=== PATIENT | male | born 1950 | race Caucasian/White ===

== ENCOUNTER 2025-03-14 17:27 | Inpatient (IN) | payer BC, SELFPAY ==
[2025-03-14 15:12] VITALS: BP 112/82
--- NOTE | 2025-03-14 15:30 | ED.MUSCINJ ---
HPI-Injury
General
Chief Complaint: Fall
Source: patient
Exam Limitations: none
Time Seen by Provider: 03/14/25 15:17
Nursing documentation reviewed up to this point in time: agreed with
History of Present Illness-Injury
Initial Injury comments:
74 yo male w h/o parathyroidectomy, pacemaker/defibrillator, afib, asa only, no other anticoagulation, kidney stones, NIDDM, difficult intubations, HTN, HLD, bone on bone bilateral knee pain. Bone on bone right hip pain, States he was coming out of
restaurant, walking with his walker, lost balance and fell injuring left hip.
Past History
Past History
ED Past Medical History: Arrthythmia (A-fib), CHF, HTN, Hypercholesterolemia, NIDDM and Other (Arthritis both knees, right hip)
ED Past Surgical History: Cardiac (pacemaker) and Other (Parathyroidectomy)
Social History
Tobacco: Former smoker
Alcohol: None
Personal:
Living: with family
Employment: Retired
Review of Systems
Review of Systems
Allergies reviewed?: Yes
All Other Systems: ROS reviewed and negative except as documented in HPI and ROS
Constitutional: Denies fever
Respiratory: Denies trouble breathing
Cardiac: Denies chest pain
ABD/GI: Denies abdominal pain, nausea, diarrhea, constipated or anorexia
: Denies dysuria, frequency or difficulty voiding
Musculoskeletal: Reports joint pain (Chronic bilateral knee and hip pain. Bone on bone R hip pain, Unable to get replaced due to poor cardiac EF 10-15%, in cardiac rehab to try to improve so he can get R hip replaced) and other (Chronic right hip
and bilateral knee pain, Left hip pain new since the fall. Uses a walker or cane but can walk independently inside the house); Denies neck pain or back pain
Skin: Reports no symptoms
Neurological: Denies dizzy, weakness or numbness
Phy Exam
Physical Exam
Physical Exam:
GENERAL: No acute distress. A&Ox3.
CONSTITUTIONAL: Afebrile.
EYES: clear, conjunctivae normal
ENMT: moist mucus membranes
RESPIRATORY: Regular respirations, nonlabored, lungs clear.
CARDIOVASCULAR: Regular rate and rhythm, no murmurs, no rubs.
GI: Morbidly obese, soft, nontender, normal BS
MUSCULOSKELETAL: Unable to move left leg due to significant left hip pain. Well perfused.
SKIN: Warm, dry, pink
PSYCH: Normal mood and affect. Well kept, interactive and appropriate
NEUROLOGIC: Awake, alert and oriented. No focal neurological deficits
Injury Course
Orders/Labs/Results
Orders:
Orders
03/14/25 Dinner
2000 calorie (17 carb) Diabetic
At Your Request: Full Participation
03/14/25 15:29
HYDROmorphone [Dilaudid] 1 mg IV NOW STA
Ondansetron Injectable [Zofran] 4 mg IV NOW STA
Hip, Left 2-3 Views [CR Hip - LT w/wo Pel 2-3 Vw*] Urgent
Comment:
Reason For Exam: pain after fall
Include a pelvis x-ray?: Yes
03/14/25 15:40
Complete Blood Count/With Diff Urgent
Comprehensive Metabolic Panel Urgent
Glycohemoglobin (HgbA1c) Urgent
03/14/25 16:20
Femur, Left 2 View [CR Femur - Left Min 2 Vw] Urgent
Comment:
Reason For Exam: pain after fall
03/14/25 16:41
ORTHOPEDIC CONSULT Urgent
Consulting Provider: Curtis Villarreal
Was physician already notified: Yes
Reason for consult: fracture left hip/prox femur
03/14/25 16:48
PTT Urgent
Prothrombin Time Urgent
03/14/25 16:51
EKG [Electrocardiogram (*1)] Routine
Reason for Study: PreOp
03/14/25 16:53
CARDIOLOGY CONSULT Urgent
Consulting Provider: Alfred Shepard
Was physician already notified: Yes
Reason for consult: Fracture prox femur.
03/14/25 17:13
Admit/Transfer Patient As Directed
Co-Sign Provider:
Level of Care: Inpatient admission
Assign to:: Telemetry
Physician / Group: [email or web address]
Diagnosis: acute Lt Hip proximal femur FX
Reason for Telemetry: Subacute Heart Failure
Date to Stop Telemetry: 03/16/25
Time to Stop Telemetry: 11:00
Reason for Hospitalization: acute Lt Hip proximal femur FX s/p fall
Expected length of stay greater than two midnights?: Yes
ELOS- Estimated Length of Stay in days: 3
I certify the patient meets the requirements for IP care: Yes
03/14/25 17:15
Code Status As Directed
Resuscitation Status: Full Code
03/14/25 18:19
Dextrose 50%-Water [Dextrose 50% Syringe] 12.5 grams IV [id number] PRN
Gabapentin [Neurontin] 100 mg PO QID
Glucagon [GlucaGen] 1 mg IM PRN PRN
HYDROmorphone [Dilaudid] 0.5 mg IV Q3HPRN PRN
Magnesium Hydroxide [Milk of Magnesia] 30 ml PO DAILYPRN PRN
Oxycodone [Roxicodone] 5 mg PO Q4HPRN PRN
Tamsulosin [Flomax] 0.4 mg PO DAILYPRN PRN
03/14/25 18:19
CARDIOLOGY CONSULT Routine
Consulting Provider: Alfred Shepard
Was physician already notified: Yes
Reason for consult: acute Lt Hip proximal femur FX, complex acrd HX, LVEF 10-15, PPM
ORTHOPEDIC CONSULT Routine
Consulting Provider: Curtis Villarreal
Was physician already notified: Yes
Reason for consult: acute Lt Hip proximal femur FX
Activity As Directed
Activity Level: With Assistance
Bedside Glucose Monitoring As Directed
Frequency: AC&HS
Additional Instructions:: Change to q6h if pt on TPN, tube feeding or not eating
Bladder Scan As Directed
Follow Bladder Retention/Intermittent Cath Algorithm?: Yes
PRN if no void in __ hours: 6
Comment: if not voiding 6 hrs upon arrival to floor, bladder scan & follow algorithm
Intake/ Output As Directed
Frequency: Per unit guidelines
Pneumatic Compression Sleeves As Directed
Type: Knee high
Straight Cath As Directed
Frequency: Per Retention Algorithm
Additional Instructions: straight cath as needed per acute urinary retention algorithm for 24 hrs
Additional Instructions: for bladder scan greater than 400 mL
Vital Signs As Directed
Frequency: Per unit guidelines
DX Deep Vein Thrombosis Video Routine
03/14/25 20:00
Acetaminophen [Tylenol] 650 mg PO Q4HWA
Carvedilol [Coreg] 25 mg PO BID
Docusate Sodium [Colace] 100 mg PO BID
Sacubitril 24/Valsartan 26 [Entresto 24 mg/26 mg] 1 tab PO BID
Sennosides [Senokot] 17.2 mg PO BID
03/15/25 06:00
Echo 2D MMode Color/Doppler IN AM
Reason for Study: HX chr HFrEF, preop evalaution
03/15/25 07:30
Insulin Aspart Corrective Low [Novolog Flexpen-Low Resistance] See Protocol SC AC
03/15/25 08:00
Dapagliflozin [Farxiga] 10 mg PO DAILY
Rosuvastatin Calcium [Crestor] 20 mg PO DAILY
Torsemide [Demadex] 60 mg PO DAILY
03/16/25 11:00
DC Protocol for Telemetry ONCE
Abnormal Lab Results
03/14/25
15:40
RBC 3.27 L 10^6/uL
(4.70-6.10)
Hgb 11.2 L g/dL
(13.0-18.0)
Hct 33.8 L %
(39.0-52.0)
MCV 103.4 H fL
(80.0-94.0)
MCH 34.3 H pg
(27.0-31.0)
RDW 14.6 H %
(11.5-14.5)
MPV 10.5 H fL
(7.4-10.4)
Lymphocytes % 20.1 L %
(20.5-51.1)
Monocytes % 10.2 H %
(1.7-9.3)
Carbon Dioxide 31 H mmol/L
(22-30)
BUN 27 H mg/dl
(9-20)
Creatinine 1.4 H mg/dL
(0.7-1.3)
Glucose 125 H mg/dl
(70-99)
Total Protein 6.0 L g/dl
(6.3-8.2)
03/14/25 15:40
03/14/25 15:40
MDM/Problems Addressed
Differential Diagnosis Includes:
L hip fracture vs dislocation, pelvic fracture
MDM/Problems Addressed:
74 yo male w h/o parathyroidectomy, afib on ASA only, pacemaker/defibrillator, kidney stones, NIDDM, difficult intubations, HTN, HLD, bone on bone bilateral knee pain. Bone on bone right hip pain, States he was coming out of restaurant, walking with
his walker, lost balance and fell injuring left hip. Denies hitting head or any other injury.
CBC with no clinically significant abnormality
CMP with mild renal insufficiency, nothing to compare patient has never been here before
X-ray left hip and left femur s initially read by this examiner: comminuted displaced fracture left proximal femur
Patient notified of results and need for admission for surgery.
5:[address] Villarreal Orthopedics notified of admission
Dr. Shepard Cardiology notified of admission.
Hospitalist notified of admission.
*Pulse Oximetry
Oxygen Mode of Delivery: Room air
Patient hypoxic: no
*Critical Care Note
Total Time (30-74mins, 75-104mins- exclusive of procedures): Not Applicable
ED Attending Note
-
Portions of this chart may have been created with voice recognition software.� Occasional wrong word or��sound alike� substitutions may have occurred due to the inherent limitations of voice recognition software.
Discharge Plan
Departure
Patient Disposition: Admit
Date of Disposition: 03/14/25
Time of Disposition: 16:45
Admit to: Med/Surg
Presentation/result/management discussed w/ accepting MD/DO: Hospitalist
Condition: Fair
Discharge Problem:
Fall from slip, trip, or stumble, Closed fracture of proximal end of left femur
Interventions
Interventions:
*Risk Screen - Suicide Last Done: 03/14/25 20:22
*General Assessment Last Done: 03/14/25 15:24
*Neglect/Abuse Screening Last Done: 03/14/25 15:26
*ED- Fall Risk Assessment Last Done: 03/14/25 15:24
*ED COVID-19 Vaccine History Last Done: 03/14/25 15:24
*Nursing Disposition Last Done: 03/14/25 19:41
ED-Musculoskeletal Assessment Last Done: 03/14/25 15:35
ED- Neurological Assessment Last Done: 03/14/25 15:27
ED-Skin Assessment Last Done: 03/14/25 15:36
Discharge Date and Time
Discharge Date/Time: 03/14/25 19:41
[2025-03-14 15:41] VITALS: BMI 32.7
[2025-03-14 15:46] LABS: Hematocrit 33.8 % (39.0-52.0); Hemoglobin 11.2 g/dL (13.0-18.0); Mean Corp Hgb Conc. 33.1 g/dL (33.0-37.0); Mean Corpuscular Volume 103.4 fL (80.0-94.0); Nucleated Red Blood Cells % 0 % (-); Platelet Count 187 10^3/uL (130-400); Red Cell Dist. Width 14.6 % (11.5-14.5)
[2025-03-14] MEDS: DILAUDID 1 MG IV (15:49)
[2025-03-14] MEDS: ZOFRAN 4 MG IV (15:49)
[2025-03-14 16:01] LABS: ALT (SGPT) 19 U/L (0-50); AST (SGOT) 22 U/L (17-59); Albumin 4.0 g/dl (3.5-5.0); Alkaline Phosphatase 43 U/L (38-126); Blood Urea Nitrogen 27 mg/dl (9-20); Calcium 8.4 mg/dl (8.4-10.2); Carbon Dioxide 31 mmol/L (22-30); Chloride 104 mmol/L (98-107); Estimated Creatinine Clearance 62 ml/min; Glucose 125 mg/dl (70-99); Potassium 4.0 mmol/L (3.5-5.1); Sodium 141 mmol/L (135-145); Total Protein 6.0 g/dl (6.3-8.2); eGFR 52.09
--- NOTE | 2025-03-14 16:49 | HPS.HSE ---
Family Physician
-
Family Physician: Lupe Laurent
Chief Complaint
-
Fall and Lt Hip pain
History of Present Illness
HPI
74M Class I Obesity , use walker, No prior visit to HX parathyroidectomy, A Fib on ASA only, pacemaker/defibrillator, kidney stones, NIDDM, difficult intubations, HTN, HLD, bone on bone bilateral knee pain anf Bone on bone right hip pain seen
at ER
- Loss balance and fall coming out of restaurant while walking with walke injuring left hip.
- Denies hitting head or any other injury.
ER XR:
L hip/prox femur Fx
Medical History
Past Medical History
Past Medical History: Reports Arrhythmia (A Fib ), CAD, CHF (margoth HFrEF with LVEF 10-15 % per patient ), HTN, Hypercholesterolemia, NIDDM and Other (use walker, Class I Obesity )
Past Surgical History: Reports Cardiac (PPM/AICD ) and Other (Parathyroidectomy))
Social History
Tobacco: Non-smoker
Alcohol: None
Family History
Family History: Not pertinent
Allergies / Home Medications
Allergies reflects when Allergies were last updated in [facility].
Home Medications with original date entered in [facility]
Allergy/Medication List:
Allergies
Allergy/AdvReac Type Severity Reaction Status Date / Time
Sulfa (Sulfonamide Allergy Hives Verified 03/14/25 15:38
Antibiotics)
Home Medications
carvedilol 25 mg tablet 25 mg PO Q12H 03/14/25
empagliflozin 25 mg tablet (Jardiance) 25 mg PO DAILY 03/14/25
gabapentin 100 mg capsule 100 mg PO QID 03/14/25
rosuvastatin 20 mg tablet (Crestor) 20 mg PO DAILY 03/14/25
sacubitril 24 mg-valsartan 26 mg tablet (Entresto) 1 tab PO BID 03/14/25
torsemide 60 mg tablet 60 mg PO DAILY 03/14/25
Review of Systems
-
Constitutional: Reports No Symptoms
EENT: Reports No Symptoms
Respiratory: Reports No Symptoms
Cardiac: Reports No Symptoms
Abdomen/GI: Reports No Symptoms
: Reports No Symptoms
Musculoskeletal: Reports See HPI
Skin: Reports No Symptoms
Neurological: Reports No Symptoms
Endocrine: Reports No Symptoms
Hematologic/Lymphatic: Reports No Symptoms
Psych: Reports No Symptoms
Physical Exam
Vital Signs
Vital Signs
Pulse Resp BP Pulse Ox
81 21 112/82 93
03/14/25 15:30 03/14/25 15:30 03/14/25 15:12 03/14/25 15:30
Physical Exam
General: Well Developed, Well Nourished and No Apparent Distress
HEENT: NormoCephalic, Moist mucous membranes and Atraumatic
Respiratory: Clear
Cardiac: S1/S2 and Regular Rhythm; No Murmur or Rub
GI: Soft, Non Tender, Non Distended and Normal Bowel Sounds; No Organomegaly
Rectal: Deferred by Provider
Skin: No Rash
Neuro: Nonfocal/grossly intact
Laboratory Results
-
03/14/25 15:40
03/14/25 15:40
Laboratory Results
Total Bilirubin 0.7 mg/dl (0.2-1.3) 03/14/25 15:40
AST 22 U/L (17-59) 03/14/25 15:40
ALT 19 U/L (0-50) 03/14/25 15:40
Alkaline Phosphatase 43 U/L (38-126) 03/14/25 15:40
Data Reviewed
-
Diagnostic Radiology: Report Reviewed by me
Lab Data: Labs Reviewed by me
Impression/Plan
-
Selected Entries
07/06/25
15:12 03/14/25
15:12 03/14/25
15:13
Pulse 81 82
Blood pressure 112/82
Oxygen Mode of Delivery Room air
Actual Weight 118.7 kg
Laboratory Tests
03/14/25 03/14/25
15:40 16:48
WBC 6.2
Hgb 11.2 L
Plt Count 187
INR Pending
Potassium 4.0
Carbon Dioxide 31 H
BUN 27 H
Creatinine 1.4 H
eGFR 52.09
NO PRIOR hospitalist admission:
ASSESSMENT & PLAN
Acute L Hip, Prx femur Fx - not on thinner
s/p mechanical fall. No head strike
Class I Obesity
Us walker at baseline
PMHX of complex cardiac HX - ee below
- Fx set protocol
- PO diet unless OR date is set
- Pre Op card clearance : will order ECHO give HX LVEF 10-15 %
- Ortho consulted
Renal insufficiency - suspect CKD3
- Trend Cr
NIDDM
- add ISS low
Past Cardiac HX - follow with [facility] Dr. Becerra.
HX chr HFrEF , reported LVEF 10-15% - on GDMT with Torsemide, Entresto, Jardiance and carvedilol
HX CAD , HLD - on Crestor
A Fib- on Carvedilol, not on DOAC
HX PPM /AICD
- admission EKG
- ECHO
- CBC card consulted
DVT Px: SCD
Code: Full
IP TLM
[2025-03-14 17:05] LABS: INR 1.11; PT 14.6 Sec (11.4-14.6)
[2025-03-14 17:06] LABS: APTT 29.6 Sec (23.4-35.0)
[2025-03-14] MEDS: DILAUDID 0.5 MG IV (18:35)
[2025-03-14 19:30] VITALS: BP 101/57; BMI 32.6
--- NOTE | 2025-03-14 19:30 | PTCARENOTE ---
Patient arrived from ED via stretcher. Patient aaox3, able to make needs known. IV flushed and patent. Patient conductor pullman from stretcher to bed.
[2025-03-14] MEDS: NEURONTIN 100 MG PO ×2 (20:17→21:34)
[2025-03-14] MEDS: COLACE 100 MG PO (20:17)
[2025-03-14] MEDS: SENOKOT 17.2 MG PO (20:17)
[2025-03-14] MEDS: COREG 25 MG PO (20:18)
[2025-03-14] MEDS: TYLENOL 650 MG PO (20:18)
[2025-03-14 20:29] VITALS: BMI 32.6
[2025-03-14 20:29] LABS: Glucose - Point of Care 107 mg/dl (70-99)
[2025-03-14] MEDS: ENTRESTO 24 MG/26 MG PO (20:30)
[2025-03-14] MEDS: CRESTOR 20 MG PO (21:35)
[2025-03-14 23:00] VITALS: BP 93/49
[2025-03-14] MEDS: TYLENOL PO (23:25)
[2025-03-15] VITALS (8 sets, daily range): BP systolic 96–111; BP diastolic 46–66
[2025-03-15] MEDS: DILAUDID 0.5 MG IV (00:54)
[2025-03-15] MEDS: TYLENOL PO (03:07)
--- NOTE | 2025-03-15 07:51 | CON.ORTHO ---
Consultation
-
Date/Time Consultation Performed: 03/15/2025 740 AM
Consultation - Orthopedics
History
HPI 74-year-old male significant cardiac history with pacemaker presented to the emergency department status post fall complaints of left hip pain and inability to bear weight. He was subsequently diagnosed with a left peritrochanteric femur
fracture. He was admitted to the hospitalist service orthopedics was consulted for further evaluation and treatment. This morning patient reports that he was out the brunch celebrating his anniversary yesterday when he slipped and
fell in a parking lot. He had immediate pain and inability to bear weight left hip. Pain is well localized left groin. Pain is made worse with direct palpation affected area with attempted ambulation. Does report that he was intending to undergo
right total hip arthroplasty for significant right hip DJD for which he requires a walker. Unfortunately cardiac workup prior to his planned total hip arthroplasty revealed significant reduction in ejection fraction he is currently been undergoing
cardiac rehab.
Allergies / Home Medications
Past medical history: A-fib, CAD, CHF, hypertension, hypercholesterolemia, pdo-nueetuq-ufzalatll diabetes
Past surgical history: Cardiac, parathyroidectomy
Family history: Not pertinent
Social history: Retired, lives with , non-smoker
Allergy/AdvReac Type Severity Reaction Status Date / Time
Sulfa (Sulfonamide Allergy Hives Verified 03/14/25 15:38
Antibiotics)
�Medication �Instructions �Recorded
Calcium 600 + D(3) 1 tab PO HS 03/14/25
acetaminophen 500 mg tablet 1,000 mg PO QID 03/14/25
(Tylenol Extra Strength)
carvedilol 25 mg tablet 25 mg PO Q12H 03/14/25
cetirizine 10 mg tablet (Zyrtec) 10 mg PO HSPRN PRN allergies 03/14/25
docusate sodium 100 mg capsule 100 mg PO DAILYPRN PRN constipation 03/14/25
(Colace)
empagliflozin 10 mg tablet 10 mg PO DAILY 03/14/25
(Jardiance)
gabapentin 100 mg capsule 100 mg PO QID 03/14/25
guar gum 1 tbsp PO DAILY 03/14/25
rosuvastatin 20 mg tablet (Crestor) 20 mg PO QPM 03/14/25
rutin 1 tab PO HS 03/14/25
sacubitril 24 mg-valsartan 26 mg 1 tab PO BID 03/14/25
tablet (Entresto)
therapeutic multivitamin 1 tab PO DAILY 03/14/25
torsemide 20 mg tablet 60 mg PO DAILY 03/14/25
Vital Signs / Lab Results
Temp Pulse Resp BP Pulse Ox
98.4 F 79 18 104/66 92
03/15/25 07:40 03/15/25 07:40 03/15/25 07:40 03/15/25 07:40 03/15/25 07:40
03/14/25 15:40
03/14/25 15:40
10 point review systems reviewed and negative unless otherwise stated
General: Pleasant, no acute distress at rest
Musculoskeletal left lower extremity
Skin intact, no erythema or ecchymotic staining noted, moderate swelling
No palpable ipsilateral knee effusion
Positive EHL, FHL, ankle dorsiflexion, plantarflexion
Brisk cap refill distally
Extremity shortened externally rotated
No other areas of bony tenderness palpation or crepitation long bones or joints on tertiary exam
Diagnostic studies
X-rays left hip and femur independently viewed by myself. There is a left peritrochanteric femur fracture predominately subtrochanteric in nature
Assessment / Plan
74-year-old male significant cardiac history status post fall with left peritrochanteric femur fracture. I do long detail discussion with the patient regarding diagnosis and treatment options. We discussed postsurgical nonsurgical options. We
discussed risks benefits and alternatives to surgery. We discussed the usual and expected perioperative and postoperative course. After discussion written informed consent was obtained for insertion left cephalomedullary nail. Given significant
cardiac history, will require cardiac clearance. Plan to take to the OR tomorrow.
Nonweightbearing left lower extremity
N.p.o. at midnight
Please hold anticoagulation in a.m. in preparation for OR
Medical management per primary team
Pain control
Plan: 2 OR tomorrow for operative fixation left hip fracture pending OR availability medical clearance
[2025-03-15] MEDS: TYLENOL 650 MG PO (08:01)
[2025-03-15] MEDS: FARXIGA 10 MG PO (08:01)
[2025-03-15] MEDS: COLACE 100 MG PO ×2 (08:01→19:51)
[2025-03-15] MEDS: NEURONTIN 100 MG PO ×4 (08:02→21:15)
[2025-03-15] MEDS: DEMADEX 60 MG PO (08:02)
[2025-03-15] MEDS: ENTRESTO 24 MG/26 MG 1 TAB PO (08:02)
[2025-03-15] MEDS: SENOKOT 17.2 MG PO ×2 (08:03→19:51)
[2025-03-15] MEDS: COREG 25 MG PO (08:04)
[2025-03-15 08:15] LABS: Glucose - Point of Care 147 mg/dl (70-99)
--- NOTE | 2025-03-15 08:16 | CON.CAR ---
Addendum entered and electronically signed by Alejo Gray MD 03/15/25 13:51:
I saw and examined the patient.
The ENVELOPE SEALER OPERATOR's note was reviewed and I agree with the note.
Comment:
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
Cardiology is consulted for preoperative risk stratification. Patient reports that in November he had an EF drop. He is followed by [facility]. He underwent cardiac catheterization which showed nonobstructive disease. Since then he has
been exercising. Does up to 1 hour on hand bike at the gym. Also completed cardiac rehab. He denies chest pain and dyspnea. He has chronic lower extremity edema and no orthopnea.
Physical exam reveals regular rate and rhythm, no murmurs rubs or gallops, clear lungs, and 2+ lower extremity edema bilaterally
TTE 03/15/2025: Severely dilated LV (7.6 cm), LVEF 27%, dilated RV with decreased function, mild MR, mild TR, PASP 58
Overall this patient is at elevated risk for surgical intervention on left femoral fracture (left cephalomedullary nail). NSQIP score is 12.6% for serious complication, 2.5% cardiac complication. That being said, he is optimized from a
cardiovascular standpoint and no further cardiovascular interventions will change his risk. He has lower extremity edema but this is chronic. His lungs are clear and he is able to lay flat without issue. He may require IV diuresis postoperatively
but does not need any at this point. He had a cardiac catheterization in November with no obstructive coronary disease. His ECG is AV paced and he has no significant arrhythmias on telemetry. The anesthesia/surgical team can guide perioperative GDMT
and aspirin. It should be resumed as soon as is safe from surgical standpoint. We will continue to follow along. Please call with any additional questions or concerns.
Original Note:
Consultation
Consultation Request
Date/Time Consultation Requested: 03/14/25 7799
Date/Time Consultation Performed: 03/15/25 0800
Requesting Provider: Lorraine Higgins ENVELOPE SEALER OPERATOR
Performing Provider: Sola GARCIA for Dr. Gray
Reason for Consultation: pre-op cardiovascular risk assessment (femur fracture)
Medical History
-
Chief Complaint: fall with pain, femur fracture
History of Present Illness:
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
[employer] ICD per patient, HTN, HLD, DM, he thinks history of AFIB previously on warfarin (but was told he no longer needed it- details unclear) who was walking last night with his walker and lost his balance and fell and has sustained a
left proximal femur fracture. He denies any CP, SOB, or syncope. Denies device shocks. He denies any recent weight gain on home scale. Has chronic LE edema. Of note, he has been in need of a hip replacement, but this was postponed due to recent
decrease in EF. He just finished 6 weeks of cardiac rehab and denies any trouble doing so. He goes to [employer] for 1 hour 3 times per week (in his description it sounds like hand bike is used). He does so without difficulty. He can lay flat
without SOB.
Past Medical History
Past Medical History: Arrhythmias, CHF, HTN, Hypercholesterolemia and NIDDM
Social History
Tobacco: Non-Smoker
Alcohol: None
Personal:
Family History
Family History: CAD (mom, dad, brother, sister)
Allergies / Home Medications
Allergy/AdvReac Type Severity Reaction Status Date / Time
Sulfa (Sulfonamide Allergy Hives Verified 03/14/25 15:38
Antibiotics)
�Medication �Instructions �Recorded �Confirmed �Type
Calcium 600 + D(3) 1 tab PO HS 03/14/25 03/14/25 History
acetaminophen 500 mg tablet 1,000 mg PO QID 03/14/25 03/14/25 History
(Tylenol Extra Strength)
carvedilol 25 mg tablet 25 mg PO Q12H 03/14/25 03/14/25 History
cetirizine 10 mg tablet (Zyrtec) 10 mg PO HSPRN PRN allergies 03/14/25 03/14/25 History
docusate sodium 100 mg capsule 100 mg PO DAILYPRN PRN constipation 03/14/25 03/14/25 History
(Colace)
empagliflozin 10 mg tablet 10 mg PO DAILY 03/14/25 03/14/25 History
(Jardiance)
gabapentin 100 mg capsule 100 mg PO QID 03/14/25 03/14/25 History
guar gum 1 tbsp PO DAILY 03/14/25 03/14/25 History
rosuvastatin 20 mg tablet (Crestor) 20 mg PO QPM 03/14/25 03/14/25 History
rutin 1 tab PO HS 03/14/25 03/14/25 History
sacubitril 24 mg-valsartan 26 mg 1 tab PO BID 03/14/25 03/14/25 History
tablet (Entresto)
therapeutic multivitamin 1 tab PO DAILY 03/14/25 03/14/25 History
torsemide 20 mg tablet 60 mg PO DAILY 03/14/25 03/14/25 History
Review of Systems
-
History Source: Patient
All other systems: Negative unless noted
Musculoskeletal: Other (fall with LLE pain)
Physical Exam
Vital Signs
Temp Pulse Resp BP Pulse Ox
98.4 F 79 18 104/66 92
03/15/25 07:40 03/15/25 08:04 03/15/25 07:40 03/15/25 08:04 03/15/25 07:40
Lab Results
03/14/25 15:40
03/14/25 15:40
Physical Exam
General: Well Developed, Well Nourished and No Apparent Distress
HEENT: Normocephalic and Anicteric
Respiratory: Clear and Non Labored Respirations
Cardiac: Regular Rhythm and Peripheral Edema (+1-2 BLE edema)
Skin: Warm and Dry
Neuro: AO x 3
Psych: Calm
Impression / Plan
-
Left proximal femur fracture:
-this diagnosis is threat to bodily function
-plan per ortho is left cephalomedullary nail today
-pre-op cardiovascular risk assessment: patient with history of HFrEF with an EF 10-15% per his report. He appears compensated as described. He has a BS ICD (per his report) without shocks. He is active and limited only by his hip pain (no CP or
SOB). We will update echo now. Continue to follow telemetry. Monitor volume status. He will be elevated risk for proposed procedure due to his cardiac history as described.
Chronic, stable HFrEF:
-per his report is NICM with EF 10-15%
-on Entresto, Jardiance, and coreg
-monitor volume status
-ICD as above
hx AFIB:
-details unknown, but he is no longer on OAC
-can request records for more information
HTN:
-stable, monitor
HLD: statin
DM:
-stable per patient
-management per primary
Elevated creatinine:
-unknown baseline
-obtain records and follow
Data Reviewed
-
EKG: Tracing Personally Visualized and interpreted (AV dual paced rhythm, PVC)
Radiology: Report Reviewed by me (femur XR: Comminuted intertrochanteric and subtrochanteric fracture of the left proximal femur. No other fracture of the left femur is identified. Moderate to severe degenerative change of the superolateral left
hip joint.)
Medical Tests (Nuc Med, Echo etc): Other (echo is ordered)
Labs: Labs Reviewed by me
--- NOTE | 2025-03-15 09:01 | W.PN.HOSP.TC ---
Today's Communication/Plan
-
add aspirin ( home medicine)
Get records from PCP
Echo of heart
f/w cardiology and ortho recommendations
Assessment / Plan
Assessment / Plan
Physical Exam
General: Well Developed, Well Nourished, No Apparent Distress
HEENT: Normocephalic, Moist mucous membranes and Atraumatic
Respiratory: Clear
Cardiac: S1/S2
GI: Soft, Non-Tender, Non-Distended and Normal Bowel Sounds.
Rectal: NO bleeding.
Musculoskeletal: No Clubbing, No Cyanosis
Neuro: AAOX 3, Followed commands, Nonfocal/grossly intact
Psych: Calm
A/P:
Acute left peritrochanteric femur fracture
s/p mechanical fall. No head strike
Class I Obesity
Us walker at baseline
PMHX of complex cardiac HX - see below
- Fx set protocol
- PO diet unless OR date is set
- Pre Op card clearance : will order ECHO give HX LVEF 10-15 %
- Ortho consulted
# Pre op evaluation
Patient denies chest pain or angina pain. Reports poor cardiac function with a EF depressed. He follows with [facility] cardiology, reports last cath without occlusions. He is not hypoxic or having sob, laying flat in bed without SOB. EKG is paced
rhythm. Follow-up with echo. Appreciate cardiology input
Renal insufficiency - suspect CKD3a
Get records from PCP
- Trend Cr
NIDDM
- add ISS low
Past Cardiac HX - follow with [facility] Becerra.
HX chr HFrEF , reported LVEF 10-15% - on GDMT with Torsemide, Entresto, aspirin, Jardiance and carvedilol
HX CAD , HLD - on Crestor
A Fib- on Carvedilol, not on DOAC
HX PPM /AICD
- admission EKG
- ECHO
- CBC card consulted
DVT Px: SCD
Code: Full
Total time spent to see the patient, examine the patient, review data and lab result, discuss treatment plan with patient, nursing staff around 55 minutes
Anticipated Discharge: > 48 hours
Subjective/Interval History
-
Date of Service: March 15, 2025
Objective Data
-
Vital Signs:
Vital Signs
Temp Pulse Resp BP Pulse Ox
98.4 F 79 18 104/66 92
03/15/25 07:40 03/15/25 08:04 03/15/25 07:40 03/15/25 08:04 03/15/25 07:40
I&O
03/14/25 03/15/25 03/16/25
06:59 06:59 06:59
Intake Total 480 / 480
Output Total 225 / 225 200 / 200
Balance 255 / 255 -200 / -200
[2025-03-15] MEDS: ROXICODONE 5 MG PO ×2 (09:07→18:03)
--- NOTE | 2025-03-15 09:10 | CARDSERVLU ---
Echocardiogram with [facility] completed after protocol screening completed. Allergies verified.
Patent IV site: __Rt AC___
IV site flushed with 0.9% NaCl pre and post administration.
Diluted bolus method utilized to enhance visualization of ventricular fish.
Total volume given: _2.5___ mL
Patient tolerated all procedures well without complications.
[2025-03-15 10:19] LABS: Glycohemoglobin (HgbA1c) 5.9 % (4.0-5.6)
--- NOTE | 2025-03-15 10:35 | CM ---
Patient seen at bedside on . Patient stated that he is for surgery tomorrow. Patient stated that prior to admission he lives with his in a 2 story home. Patient has a walker and a cane at home. Patient was independent of ADL's and
driving prior to admission. [facility] [place] and his PCP is Dr. Laurent. Patient anticipated SNF when post surgery. CM reviewed PAC data and provided list for snf options. Patient was considering facilities in [place] but wanted to
talk to his about options. CM will continue to follow for discharge planning needs.
Plan; SNF most likely pending PT/OT assessment
[2025-03-15] MEDS: DESENEX/MITRAZOL/ZEASORB 1 APPLIC TOPICAL ×2 (10:54→19:51)
[2025-03-15] MEDS: LIDOCAINE 4% PATCH 1 PATCH TOPICAL (13:06)
[2025-03-15 13:07] LABS: Glucose - Point of Care 131 mg/dl (70-99)
[2025-03-15] MEDS: TYLENOL 1000 MG PO ×2 (16:06→21:14)
[2025-03-15 16:50] LABS: Glucose - Point of Care 133 mg/dl (70-99)
[2025-03-15] MEDS: CRESTOR 20 MG PO (17:33)
[2025-03-15] MEDS: COREG PO (19:49)
[2025-03-15] MEDS: REMOVE LIDOCAINE PATCH 1 PATCH REMOVE (19:53)
[2025-03-15 20:42] LABS: Glucose - Point of Care 147 mg/dl (70-99)
[2025-03-16] VITALS (15 sets, daily range): BP systolic 95–121; BP diastolic 52–102; BMI 30.6
[2025-03-16 06:50] LABS: Glucose - Point of Care 111 mg/dl (70-99)
[2025-03-16 07:25] LABS: Hematocrit 30.4 % (39.0-52.0); Hemoglobin 9.8 g/dL (13.0-18.0); Mean Corp Hgb Conc. 32.2 g/dL (33.0-37.0); Mean Corpuscular Volume 103.8 fL (80.0-94.0); Platelet Count 158 10^3/uL (130-400); Red Cell Dist. Width 14.4 % (11.5-14.5)
[2025-03-16 08:34] LABS: Blood Urea Nitrogen 25 mg/dl (9-20); Calcium 8.4 mg/dl (8.4-10.2); Carbon Dioxide 30 mmol/L (22-30); Chloride 104 mmol/L (98-107); Estimated Creatinine Clearance 79 ml/min; Glucose 104 mg/dl (70-99); Potassium 4.2 mmol/L (3.5-5.1); Sodium 141 mmol/L (135-145); eGFR > 60.00
--- NOTE | 2025-03-16 09:14 | W.PN.HOSP.TC ---
Today's Communication/Plan
-
Hold few meds before surgery
NPO
Low BP, ok to c/w Coreg, lower the dose.
Assessment / Plan
Assessment / Plan
Physical Exam
General: Well Developed, Well Nourished, No Apparent Distress
HEENT: Normocephalic, Moist mucous membranes and Atraumatic
Respiratory: Clear
Cardiac: S1/S2
GI: Soft, Non-Tender, Non-Distended and Normal Bowel Sounds.
Rectal: NO bleeding.
Musculoskeletal: No Clubbing, No Cyanosis
Neuro: AAOX 3, Followed commands, Nonfocal/grossly intact
Psych: Calm
A/P:
#Acute left peritrochanteric femur fracture
s/p mechanical fall. No head trauma or headache.
Class I Obesity
Us walker at baseline
NPO for surgery . Patient is aware of his elevated cardiovascular risk for anesthesia and surgery, agreeable to proceed with surgery.
- Ortho consulted
# Pre op evaluation
Patient denies chest pain or angina pain. Reports poor cardiac function with a EF depressed. He follows with [facility] cardiology, reports last cath without occlusions. He is not hypoxic or having sob, laying flat in bed without SOB. EKG is paced
rhythm. Reviewed Echo with cardiology, pt at elevated risk for surgical intervention on left femoral fracture (left cephalomedullary nail). NSQIP score is 12.6% for serious complication, 2.5% cardiac complication. Maintain BB but lower the dose
due to low BP and NPO, holding Farxiga, Entresto & Torsemide pre-OR and resume afterward. Appreciate cardiology input
# Valvular heart disease. Echo showed LVEF 27%, mild MR, mild TR, moderately elevated pulmonary artery pressure 58 mmHg.
# NELSY, improved creatinine
known CKD stage IIIa
- Trend Cr
#NIDDM
HGB A1C 5.9
- added ISS low
Past Cardiac HX - follow with [facility] Dr. Becerra.
HX chr HFrEF , reported LVEF 10-15% - on GDMT with Torsemide, Entresto, aspirin, Jardiance and carvedilol
HX CAD , HLD - on Crestor
A Fib- on Carvedilol, not on DOAC
HX PPM /AICD
DVT Px: SCD
Code: Full
Total time spent to see the patient, examine the patient, review data and lab result, discuss treatment plan with patient, nursing staff around 55 minutes
Anticipated Discharge: > 48 hours
Subjective/Interval History
-
Date of Service: March 16, 2025
Objective Data
-
Labs:
Laboratory Results
03/16/25
06:43
WBC 6.8
Hgb 9.8 L
Hct 30.4 L
Plt Count 158
Sodium 141
Potassium 4.2
Chloride 104
Carbon Dioxide 30
BUN 25 H
Creatinine 1.1
Glucose 104 H
Calcium 8.4
Vital Signs:
Vital Signs
Temp Pulse Resp BP Pulse Ox
98.6 F 76 16 113/59 15
03/16/25 07:15 03/16/25 07:15 03/16/25 07:15 03/16/25 07:15 03/16/25 07:15
I&O
03/15/25 03/16/25 03/17/25
06:59 06:59 06:59
Intake Total 480 / 480 600 / 600
Output Total 225 / 225 1150 / 1150
Balance 255 / 255 -550 / -550
[2025-03-16] MEDS: COREG 12.5 MG PO ×2 (09:21→22:36)
[2025-03-16] MEDS: NEURONTIN 100 MG PO ×2 (09:21→12:35)
[2025-03-16] MEDS: LOW STRENGTH ASPIRIN 81 MG PO (09:21)
[2025-03-16] MEDS: TYLENOL 1000 MG PO ×3 (09:21→22:30)
[2025-03-16] MEDS: DESENEX/MITRAZOL/ZEASORB 1 APPLIC TOPICAL ×2 (09:21→22:31)
[2025-03-16] MEDS: LIDOCAINE 4% PATCH 1 PATCH TOPICAL (09:22)
[2025-03-16] MEDS: DILAUDID 0.5 MG IV (09:44)
[2025-03-16 12:31] LABS: Glucose - Point of Care 100 mg/dl (70-99)
--- NOTE | 2025-03-16 15:19 | CM ---
Patient seen at bedside on . referrals sent to [facility]. awaiting call back. CM will continue to follow for discharge planning needs.
Plan; SNF referrals
--- NOTE | 2025-03-16 20:27 | OR.RPT ---
Operative Report
Operative Report
Date
March 16, 2025
Anesthesia Type:
General
Operative Indications:
Left peritrochanteric femur fracture
Operative Findings :
Left peritrochanteric femur fracture with predominant subtrochanteric fracture pattern
Complications:
None
Implants:
Sidney gamma nail, 460 mm x 11 mm, 105 mm cephalomedullary screw, 70 x 5 mm and 52.5 x 5 mm distal interlocking screws
Procedure and Technique:
Insertion left long cephalomedullary nail
INDICATIONS FOR PROCEDURE:
74-year-old male sustained mechanical fall admitted to the hospital with a left peritrochanteric femur fracture. Orthopedics was consulted. We discussed postsurgical nonsurgical options. Ultimately we mutually elected to proceed with surgical
intervention. We discussed risks benefits and alternatives to surgery. Discussed usual expected perioperative postoperative course. No guarantees were given. After discussion written informed consent was obtained
OPERATIVE PROCEDURE:
Patient was seen and identified in the preoperative holding area. Operative extremities marked. All questions were addressed and answered. He was taken to the operating room where general anesthesia was administered. Was placed supine on Ider
table. Contralateral extremity was scissored. Upper extremities prepped and draped in normal sterile fashion. Preliminary orthogonal fluoroscopic images confirmed predominantly subtrochanteric femur fracture with some apex anterior deformity. We
are unable to reduce this appropriately with close reduction maneuvers. Timeout was performed again identifying the correct operative extremity. Preoperative antibiotics were addressed. I incision was made over the fracture site. Sharp
dissection was carried through skin subcutaneous tissues. Vastus lateralis was split. Reduction clamps were placed to reduce the fracture. 4 cm incision was made proximal to the greater trochanter. A guidewire was placed appropriate position
according technique guide advanced distal to the lesser trochanter. Opening reamer was utilized. Ball-tipped guidewire was passed to the distal femur. Stepwise reaming was performed to accept a 11 mm nail. Appropriately sized nail was then
passed. Trocar was then inserted through the aiming arm through previous incision. Guidewire was advanced through the femoral head and neck to appropriate depth attention was paid to minimize the tip apex distance. Appropriately sized
cephalomedullary screw was then placed. Setscrew was deployed. Attention was turned to the distal femur where 2 additional interlocking screws were placed through stab incisions via the perfect pala technique. Final orthogonal imaging confirmed
appropriate reduction of the fracture and appropriate position of implant. Satisfied with the extent of surgery wounds were copiously irrigated normal saline solution. Wounds were closed in a layered fashion utilizing 0 Vicryl for deep fascial
layer 2-0 Vicryl for subcutaneous layer and melania for skin. Aquacel dressings were placed. Anesthesia was reversed and patient was taken to PACU in stable condition. Postoperative plan to include weightbearing to the patient's tolerance to the
operative extremity. Recommend renally dosed Lovenox for 28 days postop. Plan to see patient back in 2 to 3 weeks for repeat clinical assessment plan removal of melania.
Disposition:
PACU stable condition
[2025-03-16 20:37] LABS: Glucose - Point of Care 97 mg/dl (70-99)
[2025-03-16] MEDS: REMOVE LIDOCAINE PATCH 1 PATCH REMOVE (22:31)
[2025-03-16] MEDS: SENOKOT 17.2 MG PO (22:31)
[2025-03-16] MEDS: FLOMAX 0.4 MG PO (22:31)
[2025-03-16] MEDS: NSS 1000 IV (22:32)
[2025-03-16] MEDS: CRESTOR PO (22:32)
--- NOTE | 2025-03-16 22:34 | PTCARENOTE ---
pt's A-line was removed as per Dr. Heard's order. Pressure applied times 5min. 4X4 gauge and tape dressing applied. no signs of bleeding. pt. transferred to room at 22:25. vss, no complains of nausea/vomtting or pain.
[2025-03-16 22:44] LABS: Glucose - Point of Care 115 mg/dl (70-99)
[2025-03-17] VITALS (12 sets, daily range): BP systolic 86–112; BP diastolic 42–58; PULSE 75–76; O2SAT 96; BMI 30.9
[2025-03-17] MEDS: ANCEF 5 IV ×2 (01:05→11:24)
[2025-03-17 07:45] LABS: Glucose - Point of Care 120 mg/dl (70-99)
[2025-03-17] MEDS: NOVOLOG FLEXPEN-LOW RESISTANCE SC (07:45)
[2025-03-17] MEDS: LIDOCAINE 4% PATCH 1 PATCH TOPICAL (08:01)
[2025-03-17] MEDS: LOVENOX 40 MG SC (08:01)
[2025-03-17] MEDS: LOW STRENGTH ASPIRIN 81 MG PO (08:02)
[2025-03-17] MEDS: DEMADEX 60 MG PO (08:02)
[2025-03-17] MEDS: ENTRESTO 24 MG/26 MG 1 TAB PO (08:02)
[2025-03-17] MEDS: TYLENOL 1000 MG PO ×3 (08:02→21:56)
[2025-03-17] MEDS: FARXIGA 10 MG PO (08:03)
[2025-03-17] MEDS: NEURONTIN 100 MG PO ×4 (08:03→21:57)
[2025-03-17] MEDS: COREG 12.5 MG PO (08:03)
[2025-03-17] MEDS: DESENEX/MITRAZOL/ZEASORB 1 APPLIC TOPICAL ×2 (08:04→20:26)
--- NOTE | 2025-03-17 09:30 | W.PN.HOSP.TC ---
Addendum entered and electronically signed by Precious Santos MD 03/17/25 17:47:
Addendum
Patient is having hypotension Bp at 89/48, he reported his SBP can go down to 90 at times. Could be reactive from surgery and recovery. Will hold Entresto and carvedilol for tonight, pt is not symptomatic while in bed, will monitor closely.
End
Original Note:
Today's Communication/Plan
-
Resume medications, ok to give with SBP more than 90
Assessment / Plan
Assessment / Plan
Physical Exam
General: Well Developed, Well Nourished, No Apparent Distress
HEENT: Normocephalic, Moist mucous membranes and Atraumatic
Respiratory: Clear
Cardiac: S1/S2
GI: Soft, Non-Tender, Non-Distended and Normal Bowel Sounds.
Rectal: NO bleeding.
Musculoskeletal: No Clubbing, No Cyanosis. Clean surgical site lateral left upper thigh
Neuro: AAOX 3, Followed commands, Nonfocal/grossly intact
Psych: Calm
A/P:
#Acute left peritrochanteric femur fracture after mechanical fall. No head trauma or headache.
Class I Obesity
s/p ORIF by DR Villarreal on 03/16, no complications reported
f/w ortho recommendations
SQ Lovenox for DVT prophylaxis, x 28 days.
# Valvular heart disease. Chronic HFrEF
Echo showed LVEF 27%, mild MR, mild TR, moderately elevated pulmonary artery pressure 58 mmHg.
Resume all cardiac medication, keep Coreg at 12.5 from 25 mg for another 24 hours.
# Mild acute blood loss anemia post fracture
# NELSY, improved creatinine
known CKD stage IIIa
- Trend Cr
#NIDDM
HGB A1C 5.9
- added ISS low
Past Cardiac HX - [facility] Bec[facility].
HX chr HFrEF , reported LVEF 10-15%, improved to 27 % - on GDMT with Torsemide, Entresto, aspirin, Jardiance and carvedilol
HX CAD , HLD - on Crestor
A Fib- on Carvedilol, not on DOAC
HX PPM /AICD
DVT Px: SCD
Code: Full
Total time spent to see the patient, examine the patient, review data and lab result, discuss treatment plan with patient, nursing staff around 55 minutes
Anticipated Discharge: Within 24 hours
Subjective/Interval History
-
Date of Service: March 17, 2025
No chest pain
No sob
No abd pain
Objective Data
-
Vital Signs:
Vital Signs
Temp Pulse Resp BP Pulse Ox
97.8 F 76 14 112/50 97
03/17/25 07:00 03/17/25 08:03 03/17/25 07:00 03/17/25 08:03 03/17/25 07:00
I&O
03/16/25 03/17/25 03/18/25
06:59 06:59 06:59
Intake Total 600 / 600 200 / 200 480 / 480
Output Total 1150 / 1150 950 / 1075 225 / 225
Balance -550 / -550 -750 / -875 255 / 255
[2025-03-17] MEDS: FLUSH (NSS) 2 FLUSH IV (11:25)
[2025-03-17] MEDS: ROXICODONE 5 MG PO (11:28)
[2025-03-17 11:50] LABS: Glucose - Point of Care 189 mg/dl (70-99)
--- NOTE | 2025-03-17 12:06 | W.PN.ORTHO ---
Today's Communication / Plan
-
74-year-old male postop day 1 status post left long cephalomedullary nail fixation of left subtrochanteric femur fracture doing well
Weightbearing as tolerated left lower extremity
PT OT
Pain control
DVT prophylaxis: Recommend renally dosed Lovenox x 28 days
Dressing changes as needed. Okay for nursing to perform dressing changes.
Medical management per primary team
Plan follow-up with myself outpatient 2 to 3 weeks repeat clinical assessment repeat radiographs and plan removal of melania
Subjective
.
.:
Patient resting comfortably. No acute overnight events. Has not yet worked with physical therapy or gotten out of bed.
Vital Signs and Labs
.
Vital Signs and Labs:
Lab Results
03/16/25 06:43
03/16/25 06:43
Temp Pulse Resp BP Pulse Ox
98.8 F 76 16 99/51 96
03/17/25 11:00 03/17/25 11:00 03/17/25 11:00 03/17/25 11:00 03/17/25 11:00
PT 14.6 Sec (11.4-14.6) 03/14/25 16:48
INR 1.11 03/14/25 16:48
Physical Exam
-
Musculoskeletal left lower extremity
Dressings proximally distally with minimal bloody drainage, middle dressing with more moderate drainage
Moderate swelling noted thigh
Positive EHL, FHL, ankle dorsiflexion and plantarflexion
Sensation grossly tact light touch nondisplaced distally
Brisk cap refill
[2025-03-17] MEDS: NOVOLOG FLEXPEN-LOW RESISTANCE 1 UNITS SC ×2 (12:08→16:53)
--- NOTE | 2025-03-17 14:45 | CM ---
CM following re: discharge planning.
Reviewed pt's chart, met with pt.
Pt is postop day 1 status post left long cephalomedullary nail fixation of left subtrochanteric femur fracture, doing well.
Pt is aware that [facility] and [facility] offered a bed. pt stated he has friends at[facility] and people he knows there and pt preferred [facility] when medically stable.
D/C plan: [facility] when medically stable.
CM will follow to assist pt with discharge to [facility] when medically stable.
[2025-03-17 16:52] LABS: Glucose - Point of Care 174 mg/dl (70-99)
[2025-03-17] MEDS: CRESTOR 20 MG PO (16:53)
[2025-03-17] MEDS: REMOVE LIDOCAINE PATCH 1 PATCH REMOVE (20:26)
[2025-03-17 21:46] LABS: Glucose - Point of Care 157 mg/dl (70-99)
[2025-03-17] MEDS: SENOKOT 17.2 MG PO (21:56)
[2025-03-17] MEDS: FLOMAX 0.4 MG PO (21:56)
[2025-03-18] VITALS (8 sets, daily range): BP systolic 92–99; BP diastolic 47–54; PULSE 82–88; O2SAT 94; BMI 31.3
[2025-03-18 07:36] LABS: Glucose - Point of Care 119 mg/dl (70-99)
[2025-03-18 08:01] LABS: Hematocrit 26.8 % (39.0-52.0); Hemoglobin 8.7 g/dL (13.0-18.0); Mean Corp Hgb Conc. 32.5 g/dL (33.0-37.0); Mean Corpuscular Volume 103.5 fL (80.0-94.0); Platelet Count 190 10^3/uL (130-400); Red Cell Dist. Width 14.7 % (11.5-14.5)
[2025-03-18] MEDS: COREG 3.125 MG PO ×2 (08:13→20:20)
[2025-03-18] MEDS: NOVOLOG FLEXPEN-LOW RESISTANCE SC ×2 (08:13→17:01)
[2025-03-18] MEDS: LOW STRENGTH ASPIRIN 81 MG PO (08:14)
[2025-03-18] MEDS: NEURONTIN 100 MG PO ×4 (08:14→22:08)
[2025-03-18] MEDS: LIDOCAINE 4% PATCH 1 PATCH TOPICAL (08:14)
[2025-03-18] MEDS: FARXIGA 10 MG PO (08:14)
[2025-03-18] MEDS: TYLENOL 1000 MG PO ×3 (08:14→22:08)
[2025-03-18] MEDS: LOVENOX 40 MG SC (08:15)
[2025-03-18] MEDS: DEMADEX 60 MG PO (08:15)
[2025-03-18] MEDS: DESENEX/MITRAZOL/ZEASORB 1 APPLIC TOPICAL ×2 (08:15→22:08)
[2025-03-18 08:16] LABS: Blood Urea Nitrogen 34 mg/dl (9-20); Calcium 8.2 mg/dl (8.4-10.2); Carbon Dioxide 30 mmol/L (22-30); Chloride 104 mmol/L (98-107); Estimated Creatinine Clearance 95 ml/min; Glucose 119 mg/dl (70-99); Potassium 4.2 mmol/L (3.5-5.1); Sodium 138 mmol/L (135-145); eGFR > 60.00
--- NOTE | 2025-03-18 08:45 | W.PN.HOSP.TC ---
Today's Communication/Plan
-
ok to dc if has a bed in SNF
His BP runs low, ok to c/w Lower doses of his cardiac mediations
Assessment / Plan
Assessment / Plan
Physical Exam
General: Well Developed, Well Nourished, No Apparent Distress
HEENT: Normocephalic, Moist mucous membranes and Atraumatic
Respiratory: Clear
Cardiac: S1/S2
GI: Soft, Non-Tender, Non-Distended and Normal Bowel Sounds.
Rectal: NO bleeding.
Musculoskeletal: No Clubbing, No Cyanosis. Clean surgical site lateral left upper thigh
Neuro: AAOX 3, Followed commands, Nonfocal/grossly intact
Psych: Calm
A/P:
#Acute left peritrochanteric femur fracture after mechanical fall. No head trauma or headache.
Class I Obesity
s/p ORIF by DR Villarreal on 03/16, no complications reported
f/w ortho recommendations
SQ Lovenox for DVT prophylaxis, x 28 days.
# Valvular heart disease. Chronic HFrEF
Echo showed LVEF 27%, mild MR, mild TR, moderately elevated pulmonary artery pressure 58 mmHg.
Resume all cardiac medication, keep Coreg at 3.125 from 25 mg for another 24 hours. c/w Torsemide
resume Entresto as OP
# Mild acute blood loss anemia post fracture
Start iron pills
# NELSY, improved creatinine
known CKD stage IIIa
- Trend Cr
#NIDDM
HGB A1C 5.9
- added ISS low
Past Cardiac HX - follow [facility] Dr[facility] Becerra.
HX chr HFrEF , reported LVEF 10-15%, improved to 27 % - on GDMT with Torsemide, Entresto, aspirin, Jardiance and carvedilol
HX CAD , HLD - on Crestor
A Fib- on Carvedilol, not on DOAC
HX PPM /AICD
DVT Px: SCD
Code: Full
Total time spent to see the patient, examine the patient, review data and lab result, discuss treatment plan with patient, nursing staff around 55 minutes
Anticipated Discharge: Today
Subjective/Interval History
-
Date of Service: March 18, 2025
He feels well, denies sizziness or chest pain or SOB
Objective Data
-
Labs:
Laboratory Results
03/18/25
07:30
WBC 7.9
Hgb 8.7 L
Hct 26.8 L
Plt Count 190 D
Sodium 138
Potassium 4.2
Chloride 104
Carbon Dioxide 30
BUN 34 H
Creatinine 0.9
Glucose 119 H
Calcium 8.2 L
Vital Signs:
Vital Signs
Temp Pulse Resp BP Pulse Ox
98.5 F 81 18 96/59 94
03/18/25 07:40 03/18/25 08:13 03/18/25 07:40 03/18/25 08:13 03/18/25 07:40
I&O
03/17/25 03/18/25 03/19/25
06:59 06:59 06:59
Intake Total 200 / 200 1317 / 1317 717 / 717
Output Total 950 / 1075 1675 / 1675 250 / 250
Balance -750 / -875 -358 / -358 467 / 467
[2025-03-18 12:03] LABS: Glucose - Point of Care 163 mg/dl (70-99)
[2025-03-18] MEDS: NOVOLOG FLEXPEN-LOW RESISTANCE 1 UNITS SC (12:33)
[2025-03-18] MEDS: DULCOLAX 10 MG PO (14:41)
--- NOTE | 2025-03-18 15:28 | CM ---
CM following re: discharge planning.
Reviewed pt's chart, met with pt.
Pt is postop day 2 status post left long cephalomedullary nail fixation of left subtrochanteric femur fracture, doing well.
According to pt will be ready for discharge tomorrow. Pt is aware, expressed his agreement and pt confirmed again he prefers [facility].
CM spoke to [facility] liaison Chaim and she confirmed that they do have a bed available and pt will be accepted for admission tomorrow.
[facility]
Accepting physician: Juan Daniel Chin
CM initiated an auth from [employer] for SNF level of care at [facility], spoke to surgical device sales representative [place] and based on pt's clinical pt is approved for 5 initial days from tomorrow 03/19/25 till 03/23/25 with LCD and NRD 03/23/25. Auth is:[id number].
For concurrent review phone [phone]
Auth information forwarded to [facility] liaison Chaim.
Ambulance auth obtained for Acute care ambulance for tomorrow 03/19/25, auth: [id number]
to arrange ambulance transport. PMNC completed and left with
[facility] nursing report: [phone]
Discharge instructions fax: [phone]
D/C plan: [facility] tomorrow
CM will follow to assist pt with discharge to [facility].
[2025-03-18 16:55] LABS: Glucose - Point of Care 125 mg/dl (70-99)
[2025-03-18] MEDS: CRESTOR 20 MG PO (17:29)
[2025-03-18] MEDS: REMOVE LIDOCAINE PATCH 1 PATCH REMOVE (20:21)
[2025-03-18] MEDS: SENOKOT 17.2 MG PO (22:07)
[2025-03-18] MEDS: FLOMAX PO (22:09)
[2025-03-18 23:02] LABS: Glucose - Point of Care 188 mg/dl (70-99)
[2025-03-19 03:00] VITALS: BP 102/55
[2025-03-19 05:02] VITALS: BMI 30.9
[2025-03-19 07:17] VITALS: BP 104/61
--- NOTE | 2025-03-19 07:19 | W.PN.HOSP.TC ---
Today's Communication/Plan
-
dc to SNF
Assessment / Plan
Assessment / Plan
Physical Exam
General: Well Developed, Well Nourished, No Apparent Distress
HEENT: Normocephalic, Moist mucous membranes and Atraumatic
Respiratory: Clear
Cardiac: S1/S2
GI: Soft, Non-Tender, Non-Distended and Normal Bowel Sounds.
Rectal: NO bleeding.
Musculoskeletal: No Clubbing, No Cyanosis. Clean surgical site lateral left upper thigh
Neuro: AAOX 3, Followed commands, Nonfocal/grossly intact
Psych: Calm
A/P:
#Acute left peritrochanteric femur fracture after mechanical fall. No head trauma or headache.
Class I Obesity
s/p ORIF by DR Villarreal on 03/16, no complications reported
f/w ortho recommendations
SQ Lovenox for DVT prophylaxis, x 28 days.
# Valvular heart disease. Chronic HFrEF
Echo showed LVEF 27%, mild MR, mild TR, moderately elevated pulmonary artery pressure 58 mmHg.
Resume all cardiac medication, keep Coreg at 3.125, will increase to 12.5 slowly. c/w Torsemide
resume Entresto as OP
His baseline SBP around 90 at times.
# constipation
c/w MiraLAX & Dulcolax suppository
# Mild acute blood loss anemia post fracture
Start iron pills
# NELSY, improved creatinine
known CKD stage IIIa
#NIDDM
HGB A1C 5.9
- added ISS low
Past Cardiac HX - follow [facility] Dr[facility] Becerra.
HX chr HFrEF , reported LVEF 10-15%, improved to 27 % - on GDMT with Torsemide, Entresto, aspirin, Jardiance and carvedilol
HX CAD , HLD - on Crestor
A Fib- on Carvedilol, not on DOAC
HX PPM /AICD
DVT Px: SCD
Code: Full
Total discharge time spent to see the patient, examine the patient, review data and lab result, discuss discharge plan with patient, nursing staff around 67 minutes
Anticipated Discharge: Today
Subjective/Interval History
-
Date of Service: March 19, 2025
No chest pain
No sob
Objective Data
-
Vital Signs:
Vital Signs
Temp Pulse Resp BP Pulse Ox
98.4 F 84 20 104/61 96
03/19/25 07:17 03/19/25 07:17 03/19/25 07:17 03/19/25 07:17 03/19/25 07:17
I&O
03/18/25 03/19/25 03/20/25
06:59 06:59 06:59
Intake Total 1317 / 1317 1434 / 1434
Output Total 1675 / 1675 3675 / 3675
Balance -358 / -358 -2241 / -2241
[2025-03-19 07:43] LABS: Glucose - Point of Care 113 mg/dl (70-99)
[2025-03-19] MEDS: TYLENOL 1000 MG PO (08:26)
[2025-03-19] MEDS: DEMADEX 60 MG PO (08:26)
[2025-03-19] MEDS: COREG 3.125 MG PO (08:27)
[2025-03-19] MEDS: LOVENOX 40 MG SC (08:27)
[2025-03-19] MEDS: FARXIGA 10 MG PO (08:27)
[2025-03-19] MEDS: LOW STRENGTH ASPIRIN 81 MG PO (08:27)
[2025-03-19] MEDS: ZYRTEC 10 MG PO (08:27)
[2025-03-19] MEDS: MIRALAX 17 GRAMS PO (08:28)
[2025-03-19] MEDS: LIDOCAINE 4% PATCH 1 PATCH TOPICAL (08:28)
[2025-03-19] MEDS: NOVOLOG FLEXPEN-LOW RESISTANCE SC (08:29)
[2025-03-19] MEDS: DESENEX/MITRAZOL/ZEASORB 1 APPLIC TOPICAL (08:29)
[2025-03-19] MEDS: NEURONTIN 100 MG PO ×2 (08:32→12:23)
[2025-03-19] MEDS: DULCOLAX 10 MG RECTAL (10:15)
--- NOTE | 2025-03-19 10:29 | CM ---
Patient seen at bedside on . IMM provided and signed form placed on chart. CM updated discharge on worklist with auth information. Patient will need report called to [facility] [phone]/fax [phone]. CM will continue to follow
for discharge planning needs.
PLan; transfer to [facility]
[2025-03-19 11:06] VITALS: BP 108/55
[2025-03-19 12:12] LABS: Glucose - Point of Care 163 mg/dl (70-99)
[2025-03-19] MEDS: NOVOLOG FLEXPEN-LOW RESISTANCE 1 UNITS SC (12:23)
--- NOTE | 2025-03-19 15:34 | W.DCSUMMARY ---
Discharge Summary
Discharge Data
Date of Admission: 03/14/25
Date of Discharge: 03/19/25
-
Pending Results: No
Hospital Course
74 years old male admitted after mechanical fall. He sustained acute left peritrochanteric femur fracture. He was evaluated by orthopedics and recommended surgery. Patient had a preoperative evaluation by lamina searcher. Echocardiogram showed LVEF
27% which reportedly improved from 15% he had in the past. Patient followed with [facility] cardiology group. Blood pressure medications were held before surgery except carvedilol. Dose of carvedilol was lowered due to hypotension. Patient underwent
insertion left long cephalomedullary nail on 03/16/[address] Villarreal without complications. Postoperatively, blood pressure medications were started slowly. He had constipation and was given laxatives with good bowel function. He tolerated diet
well. He did not need significant amount of opioid painkillers. Patient remained hemodynamically stable. He was evaluated by physical therapy and block and case maker. [facility].
Discharge Plan
-
Patient Disposition: Acute Rehab Facility
Discharge Diagnosis/Procedures: Fall: status post left long cephalomedullary nail fixation of left subtrochanteric femur fracture by Dr Villarreal on 03/16/25. Weightbearing as tolerated left lower extremity. PT/OT. Pain control
DVT prophylaxis: Recommend renally dosed Lovenox x 25 days ( to finish course of 28 days).
-Chronic HFrEF
Chronic low blood pressure, Coreg dose was reduced to allow blood pressure to recover, follow with his lamina searcher regarding cardiac medications.
Diet: As tolerated and Low Sodium
Referrals:
Timoteo Becerra MD [Non-Admitting Privileges, Internal Medicine] - in one to two weeks
Lupe Laurent MD [Family Provider, Internal Medicine]
Curtis Villarreal MD [Active, Orthopedics] - in two to three weeks
Prescriptions:
New
carvedilol 3.125 mg Tablet
12.5 mg PO BID Qty: 60 0RF
lidocaine 4 % Adhesive Patch,Medicated
1 patch topical DAILY Qty: 30 0RF
polyethylene glycol 3350 17 gram Powder In Packet
17 g PO DAILYPRN PRN (Reason: constipation) Qty: 30 0RF
enoxaparin 40 mg/0.4 mL Syringe
40 mg SC DAILY Qty: 25 0RF
sennosides [Sofi-angel] 8.6 mg Tablet
17.2 mg PO HS Qty: 30 0RF
oxycodone 5 mg Tablet
5 mg PO Q8HPRN PRN (Reason: severe pain) Qty: 10 0RF
acetaminophen [Tylenol Extra Strength] 500 mg Tablet
1,000 mg PO TID Qty: 20 0RF
tamsulosin 0.4 mg Capsule
0.4 mg PO HS Qty: 7 0RF
Continued
rosuvastatin [Crestor] 20 mg Tablet
20 mg PO QPM
gabapentin 100 mg Capsule
100 mg PO QID
torsemide 20 mg Tablet
60 mg PO DAILY
cetirizine [Zyrtec] 10 mg Tablet
10 mg PO HSPRN PRN (Reason: allergies)
therapeutic multivitamin Tablet
1 tab PO DAILY
guar gum Packet
1 tbsp PO DAILY
docusate sodium [Colace] 100 mg Capsule
100 mg PO DAILYPRN PRN (Reason: constipation)
Jardiance 10 mg Tablet
10 mg PO DAILY
Calcium 600 + D(3)
1 tab PO HS
rutin
1 tab PO HS
Patient Comments:
03/14/2025, flavonoid.
aspirin 81 mg Tablet
81 mg PO DAILY
Entresto 24-26 mg Tablet
1 tab PO BID Qty: 0 0RF
Rx Instructions:
hold if sbp less than 95
Discontinued
carvedilol 25 mg Tablet
25 mg PO Q12H
acetaminophen [Tylenol Extra Strength] 500 mg Tablet
1,000 mg PO QID
Discharge Orders:
Discharge Patient (As Directed); Ordered 03/19/25
Ordered By: Precious Santos
Discharge Date and Time
Discharge Date/Time: 03/19/25 13:42
Print Language: MARTINIQUAIS
== END 2025-03-19 13:42 | DRG 481 ==
LOC: 2 SOUTH 17:27
PROVIDERS: Registered Nurse; ADMITTING PHYSICIAN Internal Medicine; ATTENDING PHYSICIAN Internal Medicine; CONSULT PHYSICIAN Orthopaedic Surgery; EMERGENCY PHYSICIAN Emergency Medicine; FAMILY PHYSICIAN Internal Medicine; OTHER PHYSICIAN Student in an Organized Health Care Education/Training Program
PROC: 0QS706Z Reposition Left Upper Femur with Intramedullary Internal Fixation Device, Open Approach (ICD-10-PCS; 2025-03-16)
DX: S72.22XA Displaced subtrochanteric fracture of left femur, initial encounter for closed fracture (principal); D62 Acute posthemorrhagic anemia; I13.0 Hypertensive heart and chronic kidney disease with heart failure and stage 1 through stage 4 chronic kidney disease, or unspecified chronic kidney disease; I50.22 Chronic systolic (congestive) heart failure; N17.9 Acute kidney failure, unspecified; I42.8 Other cardiomyopathies; I48.91 Unspecified atrial fibrillation; I95.81 Postprocedural hypotension; E78.00 Pure hypercholesterolemia, unspecified; E66.811 Obesity, class 1; I25.10 Atherosclerotic heart disease of native coronary artery without angina pectoris; K59.00 Constipation, unspecified; M17.0 Bilateral primary osteoarthritis of knee; E11.22 Type 2 diabetes mellitus with diabetic chronic kidney disease; N18.31 Chronic kidney disease, stage 3a; M16.11 Unilateral primary osteoarthritis, right hip; W01.0XXA Fall on same level from slipping, tripping and stumbling without subsequent striking against object, initial encounter; Y93.01 Activity, walking, marching and hiking; Y92.511 Restaurant or cafe as the place of occurrence of the external cause; Y92.481 Parking lot as the place of occurrence of the external cause; Z95.0 Presence of cardiac pacemaker; Z87.891 Personal history of nicotine dependence; Z79.84 Long term (current) use of oral hypoglycemic drugs; Z87.442 Personal history of urinary calculi; Z68.30 Body mass index [BMI] 30.0-30.9, adult; Z88.2 Allergy status to sulfonamides; Z82.49 Family history of ischemic heart disease and other diseases of the circulatory system; Z79.82 Long term (current) use of aspirin
CPT/HCPCS: 73502; 73552; 76000; 80048; 80053; 82962; 83036; 85025; 85027; 85610; 85730; 86850; 86900; 86901; 93005; 93306; 96374; 96375; 97110; 97163; 97167; 97530; 97535; 99285; C1713; Q9950